=== PATIENT | female | born 2000 | race African-American/Black ===

== ENCOUNTER 2021-04-03 02:11 | Inpatient (IN) ==
[2021-04-03] MEDS ORDERED: NS 0.9% 1000 ml BAG 2,000 ML IV ONE ×2 (02:22→04:38)
[2021-04-03] MEDS ORDERED: fentaNYL 100 mcg/2 ml 50 MCG/ML VIAL IV ONE (02:23)
[2021-04-03 02:35] LABS: ABS Basophils 0.1 10^3/ul (0-0.2); ABS Eosinophils 0.1 10^3/ul (0-0.6); ABS Lymphocytes 2.2 10^3/ul (1.0-4.8); ABS Monocytes 0.4 10^3/ul (0-0.8); ABS Neutrophils 6.3 10^3/ul (1.5-7.7); Eosinophil % 1.1 %; Hematocrit 32 % (35-47); Lymphocyte % 24.6 %; Mean Corpuscular HGB Conc 35 g/dL (31-36); Mean Corpuscular Hemoglobin 28 pg (27-31); Mean Corpuscular Volume 80 fL (80-97); Mean Platelet Volume 8.5 fL (7.4-10.4); Nucleated Red Blood Cells % 0.1; Platelet Count 220 10^3/uL (150-450); Red Blood Count 3.94 10^6 /uL (3.70-4.87); Red Cell Distribution Width 20 % (10-15); White Blood Count 9.1 10^3/uL (3.5-10.8)
[2021-04-03 02:55] LABS: Albumin 4.3 g/dL (3.2-5.2); Albumin/Globulin Ratio 1.2 (1-3); Calcium 9.8 mg/dL (8.6-10.3); Globulin 3.6 g/dL (2-4); Potassium 3.8 mmol/L (3.5-5.0); Total Bilirubin 1.9 mg/dL (0.2-1.0); Total Protein 7.9 g/dL (6.4-8.9); eGFR CKD-EPI 119.5 (>60)
[2021-04-03 03:03] LABS: HCG Pregnancy 0.78 mIU/mL
[2021-04-03] MEDS: fentaNYL 100 mcg/2 ml 50 MCG/ML VIAL IV SLOW PU PRN ×2 (03:18→04:02)
[2021-04-03] MEDS ORDERED: HYDROmorphone 1 MG/1 ML SYRINGE IV SLOW PU ONE (04:26)
[2021-04-03] MEDS ORDERED: HYDROmorphone 0.5 MG/0.5 ML SYRINGE IV PRN (05:09)
[2021-04-03] MEDS: Ondansetron 4 mg VIAL 2 MG/ML 2 ml VIAL IV PRN ×2 (05:16→10:52)
[2021-04-03 05:30] LABS: Urine Appearance Clear; Urine Bilirubin Negative (Negative); Urine Blood Negative (Negative); Urine Color Yellow; Urine Glucose Negative (Negative); Urine Ketones Negative (Negative); Urine Nitrite Negative (Negative); Urine Protein Negative (Negative); Urine Specific Gravity 1.009 (1.002-1.030); Urine Urobilinogen Negative (Negative)
[2021-04-03] MEDS: Enoxaparin 40 MG/0.4 ML SYR SUBCUT SCH (06:43)
[2021-04-03] MEDS: NS 0.9% 1000 ml BAG 1,000 ML IV SCH ×2 (08:21→18:22)
[2021-04-03] MEDS ORDERED: Naloxone Nasal Spray 4 MG/0.1 ML NASAL.SPR INTRANASAL PRN (08:47)
[2021-04-03] MEDS: HYDROmorphone 1 MG/1 ML SYRINGE IV PRN ×2 (09:05→13:24)
[2021-04-03 09:29] LABS: Corrected Retic Count 2.8 % (0.5-1.5); Hematocrit for Retic CNT 32 % (35-47); Immature Retic Fraction 0.55; RBC Retic Count 3.91 10^6/uL (3.70-4.87)
[2021-04-03] MEDS ORDERED: Prochlorperazine 5 mg/ml 2 ml VIAL (10 mg) IV ONE (12:45)
[2021-04-03] MEDS ORDERED: HYDROmorphone 1 MG/1 ML SYRINGE IV PRN ×2 (13:31→23:41)
[2021-04-03] MEDS: diPHENhydraMINE 25 mg TAB PO PRN ×2 (16:24→23:54)
[2021-04-03] MEDS ORDERED: HYDROmorphone 1 MG/1 ML SYRINGE IV ONE (23:42)
[2021-04-04] MEDS ORDERED: HYDROmorphone 1 MG/1 ML SYRINGE IV ONE ×2 (00:14→09:23)
[2021-04-04] MEDS: diPHENhydraMINE 25 mg TAB PO PRN ×2 (05:46→16:26)
[2021-04-04] MEDS: Enoxaparin 40 MG/0.4 ML SYR SUBCUT SCH (05:46)
[2021-04-04] MEDS: NS 0.9% 1000 ml BAG 1,000 ML IV SCH (05:47)
[2021-04-04] MEDS: HYDROmorphone 1 MG/1 ML SYRINGE IV SLOW PU PRN ×2 (06:00→13:54)
[2021-04-04 07:07] LABS: Hematocrit 23 % (35-47); Hemoglobin 8.1 g/dL (12.0-16.0); Mean Corpuscular HGB Conc 35 g/dL (31-36); Mean Corpuscular Hemoglobin 28 pg (27-31); Mean Corpuscular Volume 81 fL (80-97); Mean Platelet Volume 8.3 fL (7.4-10.4); Platelet Count 129 10^3/uL (150-450); Red Blood Count 2.87 10^6 /uL (3.70-4.87); Red Cell Distribution Width 21 % (10-15); White Blood Count 15.1 10^3/uL (3.5-10.8)
[2021-04-04 07:30] LABS: Calcium 9.6 mg/dL (8.6-10.3); Magnesium 1.8 mg/dL (1.9-2.7); Potassium 3.7 mmol/L (3.5-5.0); Total Bilirubin 3.7 mg/dL (0.2-1.0)
[2021-04-04 07:36] LABS: Albumin/Globulin Ratio 1.2 (1-3); Globulin 3.4 g/dL (2-4); Total Protein 7.4 g/dL (6.4-8.9)
[2021-04-04 07:50] LABS: ABS Basophils 0.1 10^3/ul (0-0.2); ABS Eosinophils 0.2 10^3/ul (0-0.6); ABS Lymphocytes 4.2 10^3/ul (1.0-4.8); ABS Neutrophils 9.6 10^3/ul (1.5-7.7); Eosinophil % 1.2 %; Lymphocyte % 28.1 %; Nucleated Red Blood Cells % 0.1
[2021-04-04] MEDS ORDERED: Magnesium Sulfate 2 gm BAG 2 GM/50 ML BAG IVPB ONE (08:31)
[2021-04-04] MEDS ORDERED: Naloxone 0.4 mg VIAL 0.4 mg/ml 1 ml VIAL IV PUSH PRN (08:40)
[2021-04-04] MEDS: Ondansetron 4 mg VIAL 2 MG/ML 2 ml VIAL IV PRN (08:43)
[2021-04-04 09:38] LABS: Corrected Retic Count 2.9 % (0.5-1.5); Hematocrit for Retic CNT 24 % (35-47); Immature Retic Fraction 0.64; RBC Retic Count 2.92 10^6/uL (3.70-4.87)
[2021-04-04] MEDS ORDERED: HYDROmorphone PCA 20 MG/20 ML PCA.SYRING PCA SCH ×2 (10:00→21:49)
[2021-04-04] MEDS ORDERED: diPHENhydraMINE 25 mg TAB PO ONE (16:42)
[2021-04-04] MEDS ORDERED: diPHENhydraMINE 25 mg TAB PO PRN (16:42)
[2021-04-05 05:38] LABS: Hematocrit 25 % (35-47); Hemoglobin 8.8 g/dL (12.0-16.0); Mean Corpuscular HGB Conc 35 g/dL (31-36); Mean Corpuscular Hemoglobin 29 pg (27-31); Mean Corpuscular Volume 82 fL (80-97); Platelet Count 135 10^3/uL (150-450); Red Blood Count 3.08 10^6 /uL (3.70-4.87); Red Cell Distribution Width 21 % (10-15); White Blood Count 14.4 10^3/uL (3.5-10.8)
[2021-04-05 05:54] LABS: Albumin 3.8 g/dL (3.2-5.2); Albumin/Globulin Ratio 1.1 (1-3); Calcium 9.2 mg/dL (8.6-10.3); Globulin 3.5 g/dL (2-4); Potassium 3.7 mmol/L (3.5-5.0); Total Bilirubin 3.5 mg/dL (0.2-1.0); Total Protein 7.3 g/dL (6.4-8.9); eGFR CKD-EPI 133.6 (>60)
[2021-04-05] MEDS: Enoxaparin 40 MG/0.4 ML SYR SUBCUT SCH (06:00)
[2021-04-05] MEDS ORDERED: HYDROmorphone PCA 20 MG/20 ML PCA.SYRING PCA SCH (09:12)
[2021-04-05] MEDS: NS 0.9% 1000 ml BAG 1,000 ML IV SCH ×2 (09:52→19:39)
[2021-04-05] MEDS ORDERED: Magnesium Hydroxide LIQ 30 ML UDC PO PRN (17:47)
[2021-04-05] MEDS ORDERED: Polyethylene Glycol 3350 17 GM PACKET PO PRN (17:47)
[2021-04-05] MEDS ORDERED: Saline NASAL SPRAY 0.65% BTL BOTH NARES PRN (18:13)
[2021-04-06 04:58] LABS: Hematocrit 24 % (35-47); Hemoglobin 8.4 g/dL (12.0-16.0); Mean Corpuscular HGB Conc 35 g/dL (31-36); Mean Corpuscular Hemoglobin 28 pg (27-31); Mean Corpuscular Volume 80 fL (80-97); Mean Platelet Volume 7.1 fL (7.4-10.4); Platelet Count 130 10^3/uL (150-450); Red Blood Count 3.01 10^6 /uL (3.70-4.87); Red Cell Distribution Width 21 % (10-15); White Blood Count 10.1 10^3/uL (3.5-10.8)
[2021-04-06 05:09] LABS: Albumin 3.8 g/dL (3.2-5.2); Albumin/Globulin Ratio 1.1 (1-3); Calcium 9.3 mg/dL (8.6-10.3); Globulin 3.5 g/dL (2-4); Magnesium 2.1 mg/dL (1.9-2.7); Potassium 3.8 mmol/L (3.5-5.0); Total Bilirubin 2.9 mg/dL (0.2-1.0); Total Protein 7.3 g/dL (6.4-8.9); eGFR CKD-EPI 133.6 (>60)
[2021-04-06] MEDS: Enoxaparin 40 MG/0.4 ML SYR SUBCUT SCH (05:17)
[2021-04-06] MEDS ORDERED: HYDROmorphone 1 MG/1 ML SYRINGE IV SLOW PU PRN ×2 (09:07→13:12)
[2021-04-07] MEDS: Enoxaparin 40 MG/0.4 ML SYR SUBCUT SCH (06:19)
[2021-04-07 07:36] LABS: Hematocrit 28 % (35-47); Hemoglobin 9.7 g/dL (12.0-16.0); Mean Corpuscular HGB Conc 35 g/dL (31-36); Mean Corpuscular Hemoglobin 28 pg (27-31); Mean Corpuscular Volume 81 fL (80-97); Platelet Count 160 10^3/uL (150-450); Red Blood Count 3.49 10^6 /uL (3.70-4.87); Red Cell Distribution Width 21 % (10-15); White Blood Count 10.3 10^3/uL (3.5-10.8)
[2021-04-07 07:52] LABS: Calcium 10.2 mg/dL (8.6-10.3); Potassium 4.1 mmol/L (3.5-5.0); eGFR CKD-EPI 134.7 (>60)
[2021-04-07 10:57] VITALS: BP 130/71
== END 2021-04-07 12:20 | disposition home or self-care (01) | DRG 662 ==
LOC: ED 02:11 → SUATTDRO 05:01 → EDHOLD 05:01 → MED 08:09
PROVIDERS: ADMIT Internal Medicine; ATTEND Student in an Organized Health Care Education/Training Program

== ENCOUNTER 2022-09-20 11:00 | Observation (INO) ==
[2022-09-20] MEDS ORDERED: Lactated Ringers 1000 ml BAG 1,000 ML IV ONE ×2 (12:09→18:26)
[2022-09-20] MEDS ORDERED: HYDROmorphone 1 MG/1 ML SYRINGE IV ONE ×2 (12:20→13:26)
[2022-09-20 12:41] LABS: ABS Basophils 0.1 10^3/uL (0.0-0.1); ABS Eosinophils 0.1 10^3/uL (0.0-0.5); ABS Lymphocytes 3.7 10^3/uL (1.0-4.8); ABS Monocytes 0.5 10^3/uL (0.0-0.9); ABS Neutrophils 5.6 10^3/uL (1.5-7.6); ABS Nucleated RBC 0.04 10^3/ul; Eosinophil % 1.5 %; Hematocrit 31.2 % (35-45); Hemoglobin 11.1 g/dL (11.5-14.3); Lymphocyte % 36.8 %; Mean Corpuscular Hemoglobin 28.4 pg (27-33); Mean Corpuscular Hgb Conc 35.7 g/dL (31-36); Mean Corpuscular Volume 79.4 fL (80-97); Nucleated Red Blood Cells % 0.4 /100 WBC (0.0-0.4); Platelet Count 190 10^3/uL (150-450); Red Blood Count 3.92 10^6/uL (3.63-4.92); Red Cell Distribution Width 19.5 % (12-17)
[2022-09-20 13:07] LABS: Corrected Retic Count 3.3 % (0.5-1.5); Hematocrit for Retic CNT 30.9 % (35-45); Immature Retic Fraction 0.62; RBC Retic Count 3.86 10^6/ul (3.63-4.92)
[2022-09-20 13:10] LABS: ALT 16 U/L (7-52); AST 20 U/L (13-39); Albumin 4.3 g/dL (3.2-5.2); Albumin/Globulin Ratio 1.2 (1-3); Alkaline Phosphatase 123 U/L (35-149); Anion Gap 11 mmol/L (2-16); Blood Urea Nitrogen 8 mg/dL (6-24); CO2 Carbon Dioxide 23 mmol/L (22-32); Calcium 9.6 mg/dL (8.6-10.3); Chloride 106 mmol/L (101-111); Creatinine, Serum 0.65 mg/dL (0.51-0.95); Globulin 3.5 g/dL (2-4); Glucose 122 mg/dL (70-100); Magnesium 1.8 mg/dL (1.9-2.7); Potassium 3.8 mmol/L (3.5-5.0); Sodium 140 mmol/L (135-145); Total Protein 7.8 g/dL (6.4-8.9); eGFR CKD-EPI 129.2 (>60)
[2022-09-20 13:16] LABS: HCG Pregnancy < 0.60 mIU/mL
[2022-09-20] MEDS ORDERED: HYDROmorphone 1 MG/1 ML SYRINGE IV SLOW PU ONE (15:54)
[2022-09-20] MEDS ORDERED: Lactated Ringers 1000 ml BAG 1,000 ML IV SCH ×2 (17:31→17:42)
[2022-09-20] MEDS ORDERED: Magnesium Hydroxide LIQ 30 ML UDC PO PRN (17:35)
[2022-09-20] MEDS ORDERED: Polyethylene Glycol 3350 17 GM PACKET PO PRN (17:35)
[2022-09-20] MEDS ORDERED: Senna TAB 8.6 mg TAB PO PRN (17:35)
[2022-09-20] MEDS ORDERED: HYDROmorphone 1 MG/1 ML SYRINGE IV SLOW PU PRN (17:40)
[2022-09-20] MEDS: HYDROmorphone 1 MG/1 ML SYRINGE IV SLOW PU PRN ×3 (18:52→22:51)
[2022-09-20] MEDS: Lactated Ringers 1000 ml BAG 1,000 ML IV SCH (20:54)
[2022-09-20] MEDS: Magnesium Hydroxide LIQ 30 ML UDC PO SCH (20:54)
[2022-09-20] MEDS: Enoxaparin 40 MG/0.4 ML SYR SUBCUT SCH (20:54)
[2022-09-20 21:10] LABS: Urine Appearance Cloudy; Urine Bilirubin Negative (Negative); Urine Blood 3+ (Negative); Urine Color Yellow; Urine Glucose Negative (Negative); Urine Ketones Negative (Negative); Urine Nitrite Negative (Negative); Urine Protein Negative (Negative); Urine Specific Gravity 1.006 (1.002-1.030); Urine Urobilinogen Negative (Negative)
[2022-09-20 21:34] LABS: Urine Bacteria Absent (Absent); Urine Red Blood Cell Trace(0-2/hpf) (Absent); Urine Squamous Epithelial Cell Present (Absent); Urine White Blood Cell Absent (Absent)
[2022-09-21] MEDS ORDERED: Ondansetron 4 mg VIAL 2 MG/ML 2 ml VIAL IV ONE (02:53)
[2022-09-21] MEDS: HYDROmorphone 1 MG/1 ML SYRINGE IV SLOW PU PRN (03:00)
[2022-09-21] MEDS: Lactated Ringers 1000 ml BAG 1,000 ML IV SCH ×2 (04:50→13:49)
[2022-09-21 06:36] LABS: ABS Lymphocytes 1.9 10^3/uL (1.0-4.8); ABS Monocytes 0.4 10^3/uL (0.0-0.9); ABS Nucleated RBC 0.02 10^3/ul; Eosinophil % 0.6 %; Hemoglobin 9.6 g/dL (11.5-14.3); Lymphocyte % 25.6 %; Mean Corpuscular Hemoglobin 28.5 pg (27-33); Mean Corpuscular Hgb Conc 34.4 g/dL (31-36); Mean Corpuscular Volume 82.6 fL (80-97); Mean Platelet Volume 8.3 fL (7.5-11.2); Nucleated Red Blood Cells % 0.2 /100 WBC (0.0-0.4); Platelet Count 119 10^3/uL (150-450); Red Blood Count 3.39 10^6/uL (3.63-4.92); Red Cell Distribution Width 19.6 % (12-17); White Blood Count 7.5 10^3/uL (3.8-11.8)
[2022-09-21 06:44] LABS: Albumin 3.8 g/dL (3.2-5.2); Direct Bilirubin 0.5 mg/dL (0.03-0.18); Indirect Bilirubin 2.5 mg/dL (0.3-1.0); Magnesium 1.8 mg/dL (1.9-2.7)
[2022-09-21 06:50] LABS: Albumin/Globulin Ratio 1.2 (1-3); Globulin 3.1 g/dL (2-4); Total Protein 6.9 g/dL (6.4-8.9)
[2022-09-21] MEDS ORDERED: Magnesium Sulfate 2 gm BAG 2 GM/50 ML BAG IVPB ONE (07:33)
[2022-09-21] MEDS: Magnesium Hydroxide LIQ 30 ML UDC PO SCH (10:05)
[2022-09-21] MEDS ORDERED: HYDROmorphone 1 MG/1 ML SYRINGE IV SLOW PU PRN ×2 (12:42→12:43)
[2022-09-21] MEDS ORDERED: Naloxone 0.4 mg VIAL 0.4 mg/ml 1 ml VIAL IV PUSH PRN (12:43)
[2022-09-21] MEDS ORDERED: HYDROmorphone 1 MG/1 ML SYRINGE ONE (12:44)
[2022-09-21] MEDS: Enoxaparin 40 MG/0.4 ML SYR SUBCUT SCH (20:29)
[2022-09-22 09:49] VITALS: BP 112/66
== END 2022-09-22 15:15 | disposition home or self-care (01) ==
LOC: ED 11:00 → EDHOLD 11:00 → SSU 21:34
PROVIDERS: ADMIT Student in an Organized Health Care Education/Training Program; ATTEND Internal Medicine

== ENCOUNTER 2023-10-16 15:18 | Inpatient (IN) ==
[2023-10-16] MEDS ORDERED: Morphine 4 MG/ML VIAL (1 ml) ONE (15:48)
[2023-10-16 15:54] LABS: ABS Basophils 0.1 10^3/uL (0.0-0.1); ABS Eosinophils 0.2 10^3/uL (0.0-0.5); ABS Lymphocytes 3.3 10^3/uL (1.0-4.8); ABS Monocytes 0.5 10^3/uL (0.0-0.9); ABS Neutrophils 5.7 10^3/uL (1.5-7.6); Hematocrit 30.6 % (35-45); Hemoglobin 10.7 g/dL (11.5-14.3); Lymphocyte % 33.8 %; Mean Corpuscular Hemoglobin 27.8 pg (27-33); Mean Corpuscular Hgb Conc 34.9 g/dL (31-36); Mean Corpuscular Volume 79.7 fL (80-97); Mean Platelet Volume 8.8 fL (7.5-11.2); Nucleated Red Blood Cells % 0.1 %/100WBC (0.0-0.8); Platelet Count 223 10^3/uL (150-450); Red Blood Count 3.84 10^6/uL (3.63-4.92); Red Cell Distribution Width 20.6 % (12-17); White Blood Count 9.8 10^3/uL (3.8-11.8)
[2023-10-16] MEDS: Lactated Ringers 1000 ml BAG 1,000 ML IV ONE ×2 (15:56→17:51)
[2023-10-16] MEDS: Morphine 4 MG/ML VIAL (1 ml) IV ONE (15:57)
[2023-10-16 16:01] LABS: INR 1.03 (0.85-1.14)
[2023-10-16] MEDS: HYDROmorphone 1 MG/1 ML SYRINGE IV SLOW PU ONE ×3 (16:02→20:08)
[2023-10-16] MEDS: HYDROmorphone 1 MG/1 ML SYRINGE IV ONE ×4 (16:15→19:59)
[2023-10-16 16:19] LABS: High Sens Troponin Baseline 3 pg/mL (<15)
[2023-10-16 16:47] LABS: ALT 13 U/L (7-52); AST 17 U/L (13-39); Albumin 4.4 g/dL (3.2-5.2); Albumin/Globulin Ratio 1.2 (1-3); Alkaline Phosphatase 117 U/L (35-149); Anion Gap 5 mmol/L (2-16); Blood Urea Nitrogen 18 mg/dL (6-24); CO2 Carbon Dioxide 28 mmol/L (22-32); Calcium 9.5 mg/dL (8.6-10.3); Chloride 102 mmol/L (101-111); Creatinine, Serum 0.65 mg/dL (0.51-0.95); Globulin 3.7 g/dL (2-4); Glucose 178 mg/dL (70-100); Potassium 3.8 mmol/L (3.5-5.0); Sodium 135 mmol/L (135-145); Total Bilirubin 2.1 mg/dL (0.2-1.0); Total Protein 8.1 g/dL (6.4-8.9); eGFR CKD-EPI 128.4 (>60)
[2023-10-16 16:54] LABS: HCG Pregnancy < 0.60 mIU/mL
[2023-10-16 17:16] LABS: Immature Retic Fraction 0.63
[2023-10-16 17:19] LABS: Corrected Retic Count 3.1 % (0.5-2.2); Hematocrit for Retic CNT 30.6 % (35-45); RBC Retic Count 3.84 10^6/ul (3.63-4.92)
[2023-10-16 17:22] LABS: High Sensitivity Troponin 1 Hr < 3 pg/mL (<15)
[2023-10-16] MEDS: Iohexol 350 (CONTRAST) 500 ML MDV IV ONE (17:44)
[2023-10-16 18:24] LABS: Urine Appearance Clear; Urine Bilirubin Negative (Negative); Urine Blood Negative (Negative); Urine Color Light-Yellow; Urine Glucose Negative (Negative); Urine Ketones Negative (Negative); Urine Nitrite Negative (Negative); Urine Protein Negative (Negative); Urine Specific Gravity 1.011 (1.002-1.030); Urine Urobilinogen Negative (Negative)
[2023-10-16] MEDS ORDERED: Naloxone 0.4 mg VIAL 0.4 mg/ml 1 ml VIAL IV PUSH PRN ×2 (20:00)
[2023-10-16] MEDS: Piperacillin/Tazobac 3.375 BAG 3.375 GM/100 ML BAG IV ONE (20:50)
[2023-10-16] MEDS ORDERED: Zosyn per Pharmacy NOTE FOLLOW UP SCH (21:00)
[2023-10-16] MEDS ORDERED: Lactated Ringers 1000 ml BAG 1,000 ML IV SCH (21:00)
[2023-10-16] MEDS: D5W 1/2 NS 1000 ml BAG 1,000 ML IV SCH (21:04)
[2023-10-16] MEDS: HYDROmorphone PCA 20 MG/20 ML PCA.SYRING PCA SCH (21:58)
[2023-10-16 22:25] LABS: Cholesterol 142 mg/dL; HDL Cholesterol 43.6 mg/dL; LDL Cholesterol 78 mg/dL; Triglycerides 102 mg/dL
[2023-10-17] MEDS ORDERED: ZOSYN 3.375 GM Q8H per EXTENDED INFUSION IV SCH (01:00)
[2023-10-17] MEDS: Enoxaparin 40 MG/0.4 ML SYR SUBCUT SCH (01:04)
[2023-10-17 06:48] LABS: ABS Basophils 0.1 10^3/uL (0.0-0.1); ABS Lymphocytes 1.7 10^3/uL (1.0-4.8); ABS Monocytes 0.6 10^3/uL (0.0-0.9); ABS Neutrophils 8.4 10^3/uL (1.5-7.6); Eosinophil % 0.3 %; Hematocrit 28.7 % (35-45); Hemoglobin 10.3 g/dL (11.5-14.3); Lymphocyte % 16.2 %; Mean Corpuscular Hemoglobin 28.4 pg (27-33); Mean Corpuscular Hgb Conc 35.8 g/dL (31-36); Mean Corpuscular Volume 79.2 fL (80-97); Mean Platelet Volume 8.6 fL (7.5-11.2); Platelet Count 193 10^3/uL (150-450); Red Blood Count 3.62 10^6/uL (3.63-4.92); Red Cell Distribution Width 20.8 % (12-17); White Blood Count 10.8 10^3/uL (3.8-11.8)
[2023-10-17 07:32] LABS: Calcium 9.1 mg/dL (8.6-10.3); Creatinine, Serum 0.58 mg/dL (0.51-0.95); Potassium 4.2 mmol/L (3.5-5.0)
[2023-10-17] MEDS: NS 0.9% 1000 ml BAG 1,000 ML IV SCH (17:31)
[2023-10-18 05:54] LABS: ABS Basophils 0.1 10^3/uL (0.0-0.1); ABS Lymphocytes 1.5 10^3/uL (1.0-4.8); ABS Monocytes 0.7 10^3/uL (0.0-0.9); ABS Neutrophils 7.6 10^3/uL (1.5-7.6); Eosinophil % 0.4 %; Hemoglobin 10.5 g/dL (11.5-14.3); Lymphocyte % 14.9 %; Mean Corpuscular Hemoglobin 28.6 pg (27-33); Mean Corpuscular Hgb Conc 36.1 g/dL (31-36); Mean Corpuscular Volume 79.3 fL (80-97); Mean Platelet Volume 8.4 fL (7.5-11.2); Platelet Count 179 10^3/uL (150-450); Red Blood Count 3.66 10^6/uL (3.63-4.92); Red Cell Distribution Width 20.1 % (12-17); White Blood Count 9.8 10^3/uL (3.8-11.8)
[2023-10-18 06:31] LABS: Calcium 9.2 mg/dL (8.6-10.3); Creatinine, Serum 0.58 mg/dL (0.51-0.95); Magnesium 1.9 mg/dL (1.9-2.7); Potassium 4.1 mmol/L (3.5-5.0)
[2023-10-18] MEDS: NS 0.9% 1000 ml BAG 1,000 ML IV SCH (08:09)
[2023-10-18] MEDS: Piperacillin/Tazobac 3.375 BAG 3.375 GM/100 ML BAG IV SCH (08:09)
[2023-10-18] MEDS ORDERED: Ondansetron 4 mg VIAL 2 MG/ML 2 ml VIAL IV PRN (10:20)
[2023-10-18] MEDS: Morphine 2 MG/ML SYRINGE IV PRN (10:25)
[2023-10-18] MEDS: HYDROmorphone 1 MG/1 ML SYRINGE IV SLOW PU PRN (10:41)
[2023-10-18] MEDS ORDERED: Vancomycin per Pharmacy 1 EA NOTE FOLLOW UP PRN (11:40)
[2023-10-18] MEDS: Vancomycin 1,250 MG in NS 0.9% 250 ml 250 ML IVPB ONE (13:03)
[2023-10-18] MEDS: fentaNYL 100 mcg/2 ml 50 MCG/ML VIAL IV SLOW PU ONE (20:06)
[2023-10-18] MEDS: Vancomycin 1,250 MG in NS 0.9% 250 ml 250 ML IVPB SCH (22:07)
[2023-10-19 06:03] LABS: Calcium 9.1 mg/dL (8.6-10.3); Creatinine, Serum 0.49 mg/dL (0.51-0.95); Potassium 4.2 mmol/L (3.5-5.0); eGFR CKD-EPI 137.4 (>60)
[2023-10-19 07:24] LABS: ABS Basophils 0.1 10^3/uL (0.0-0.1); ABS Eosinophils 0.2 10^3/uL (0.0-0.5); ABS Lymphocytes 2.6 10^3/uL (1.0-4.8); ABS Monocytes 0.6 10^3/uL (0.0-0.9); ABS Neutrophils 6.2 10^3/uL (1.5-7.6); ABS Nucleated RBC 0.01 10^3/ul; Hematocrit 24.1 % (35-45); Hemoglobin 8.7 g/dL (11.5-14.3); Lymphocyte % 26.5 %; Mean Corpuscular Hemoglobin 28.6 pg (27-33); Mean Corpuscular Hgb Conc 35.9 g/dL (31-36); Mean Corpuscular Volume 79.7 fL (80-97); Nucleated Red Blood Cells % 0.1 %/100WBC (0.0-0.8); Platelet Count Platelets clumped. 10^3/uL (150-450); Red Blood Count 3.03 10^6/uL (3.63-4.92); Red Cell Distribution Width 20.4 % (12-17); White Blood Count 9.7 10^3/uL (3.8-11.8)
[2023-10-19] MEDS: Senna TAB 8.6 mg TAB PO PRN (08:58)
[2023-10-19] MEDS: Polyethylene Glycol 3350 17 GM PACKET PO PRN (08:58)
[2023-10-19] MEDS ORDERED: HYDROmorphone 1 MG/1 ML SYRINGE IV SLOW PU PRN (11:49)
[2023-10-19] MEDS: Morphine 2 MG/ML SYRINGE IV PRN (13:25)
[2023-10-19] MEDS: Lactated Ringers 1000 ml BAG 1,000 ML IV SCH (13:26)
[2023-10-19] MEDS: Vancomycin Trough Check NOTE FOLLOW UP ONE (15:21)
[2023-10-20 06:02] LABS: ABS Eosinophils 0.3 10^3/uL (0.0-0.5); ABS Lymphocytes 2.4 10^3/uL (1.0-4.8); ABS Monocytes 0.4 10^3/uL (0.0-0.9); ABS Neutrophils 4.3 10^3/uL (1.5-7.6); ABS Nucleated RBC 0.01 10^3/ul; Eosinophil % 4.1 %; Hematocrit 24.1 % (35-45); Hemoglobin 8.4 g/dL (11.5-14.3); Lymphocyte % 32.1 %; Mean Corpuscular Hemoglobin 27.7 pg (27-33); Mean Corpuscular Hgb Conc 34.9 g/dL (31-36); Mean Corpuscular Volume 79.3 fL (80-97); Mean Platelet Volume 8.3 fL (7.5-11.2); Nucleated Red Blood Cells % 0.1 %/100WBC (0.0-0.8); Platelet Count 150 10^3/uL (150-450); Red Blood Count 3.04 10^6/uL (3.63-4.92); Red Cell Distribution Width 20.6 % (12-17); White Blood Count 7.4 10^3/uL (3.8-11.8)
[2023-10-20 06:52] LABS: Calcium 8.8 mg/dL (8.6-10.3); Creatinine, Serum 0.51 mg/dL (0.51-0.95); eGFR CKD-EPI 136.1 (>60)
[2023-10-20] MEDS: cefTRIAXone 1 gm/50 mL D5W 1 GM/50 ML BAG IV SCH (16:58)
[2023-10-20] MEDS: Lactated Ringers 1000 ml BAG 1,000 ML IV SCH (16:58)
[2023-10-21 05:52] LABS: ABS Basophils 0.1 10^3/uL (0.0-0.1); ABS Eosinophils 0.3 10^3/uL (0.0-0.5); ABS Lymphocytes 2.6 10^3/uL (1.0-4.8); ABS Monocytes 0.5 10^3/uL (0.0-0.9); ABS Neutrophils 5.1 10^3/uL (1.5-7.6); Hematocrit 26.9 % (35-45); Hemoglobin 9.5 g/dL (11.5-14.3); Lymphocyte % 29.9 %; Mean Corpuscular Hgb Conc 35.2 g/dL (31-36); Mean Corpuscular Volume 79.3 fL (80-97); Platelet Count 182 10^3/uL (150-450); Red Blood Count 3.39 10^6/uL (3.63-4.92); Red Cell Distribution Width 21.1 % (12-17); White Blood Count 8.6 10^3/uL (3.8-11.8)
[2023-10-21 06:39] LABS: Calcium 9.6 mg/dL (8.6-10.3); Creatinine, Serum 0.49 mg/dL (0.51-0.95); Magnesium 1.9 mg/dL (1.9-2.7); Potassium 4.3 mmol/L (3.5-5.0); eGFR CKD-EPI 137.4 (>60)
[2023-10-21 10:17] VITALS: BP 122/83
[2023-10-21] MEDS ORDERED: Vancomycin Trough Check NOTE FOLLOW UP ONE (12:30)
[2023-10-21 13:38] LABS: Creatinine, Serum 0.51 mg/dL (0.51-0.95); eGFR CKD-EPI 136.1 (>60)
[2023-10-21 16:19] LABS: Hb A2 3.9 % (2.0-3.3); Hb F 4.2 % (0.0-0.9); Variant 1 49.0 Hb S % (0.0); Variant 2 42.9 Hb C % (0.0)
[2023-10-22 08:47] LABS: Sickle Solubility, B Positive
== END 2023-10-21 13:50 | disposition home or self-care (01) | DRG 662 ==
LOC: ED 15:18 → EDHOLD 15:18 → SUATTDRO 19:22 → MEDTELE 23:37
PROVIDERS: ADMIT Hospitalist; ATTEND Student in an Organized Health Care Education/Training Program